=== PATIENT | male | born 1990 | race African-American/Black ===

== ENCOUNTER 2017-02-26 11:25 | Emergency (ER) | payer MEDICAID ==
[~2017-02-26] VITALS: Ht 188 cm; Wt 70.0 kg
[2017-02-26 12:06] VITALS: BP 121/79
== END 2017-02-26 12:11 | disposition home or self-care (01) ==
LOC: ED 12:09
DX: S01.112D Laceration without foreign body of left eyelid and periocular area, subsequent encounter (principal); Z48.02 Encounter for removal of sutures; F17.210 Nicotine dependence, cigarettes, uncomplicated
CPT/HCPCS: 99281